=== PATIENT | female | born 1960 | race Caucasian/White ===

== ENCOUNTER 2019-04-01 11:56 | Emergency (ER) | payer OTHER ==
[~2019-04-01] VITALS: Ht 142.2 cm; Wt 62.0 kg
[2019-04-01] MEDS ORDERED: VISCOUS LIDOCAINE 2% 15 ML UDC MM ONE (12:45)
[2019-04-01 14:01] VITALS: BP 142/77
== END 2019-04-01 14:02 | disposition home or self-care (01) ==
LOC: ER 12:21
DX: R07.89 Other chest pain (principal); J02.9 Acute pharyngitis, unspecified; R06.02 Shortness of breath
CPT/HCPCS: 71045; 99283

== ENCOUNTER 2021-06-09 06:43 | Inpatient (IN) | payer OTHER ==
[~2021-06-09] VITALS: Ht 162.6 cm; Wt 68.0 kg
[2021-06-09] VITALS (48 sets, daily range): BP systolic 0–154; BP diastolic 0–107
[2021-06-09] MEDS ORDERED: PROPOFOL 10MG/ML 100ML 100 ML IV ONE (07:15)
[2021-06-09] MEDS ORDERED: SUCCINYLCHOLINE CHLORIDE 200MG/10ML IV ONE ×2 (07:15→08:07)
[2021-06-09] MEDS ORDERED: ETOMIDATE 2MG/ML 10ML VIAL IV ONE ×2 (07:15→08:07)
[2021-06-09] MEDS ORDERED: DEXAMETHASONE 10 MG/ML VIAL IV ONE (07:45)
[2021-06-09] MEDS ORDERED: MANNITOL 20% (20GM/100ML) BAG 500ML PREMIX IV ONE (07:45)
[2021-06-09] MEDS ORDERED: MANNITOL 20% 500 ML IV SCH (08:00)
[2021-06-09] MEDS ORDERED: VECURONIUM BROMIDE 10 MG/VIAL IV ONE (08:07)
[2021-06-09] MEDS ORDERED: LEVETIRACETAM 1000MG PREMIX 100 ML IV ONE (08:45)
[2021-06-09 08:50] LABS: BG BASE EXCESS -7.3 mmol/L (-2.0-2.0); BG CARBOXYHEMOGLOBIN 0.3 % (0.5-1.5); BG DEOXYHEMOGLOBIN 3.1 % (0.0-5.0); BG FRACTION INSPIRED OXYGEN 40; BG HCO3 ACT 14.6 mmol/L (22.0-26.0); BG METHEMOGLOBIN 0.1 % (0.0-1.5); BG OXYGEN SATURATION 96.9 % (92.0-98.5); BG OXYHEMOGLOBIN 96.5 % (94.0-97.0); BG PCO2 21.1 mmHg (35.0-45.0); BG PH 7.457 (7.350-7.450); BG SAMPLE SITE RIGHT RADIAL; BG TOTAL HEMOGLOBIN 12.3 g/dL (12.0-18.0); BG VENT MODE VENT - AC
[2021-06-09] MEDS ORDERED: IOHEXOL-350 100 ML BOTTLE ONE ×2 (08:53→12:13)
[2021-06-09 09:11] LABS: HEMATOCRIT. 32.8 % (36.0-48.0); HEMOGLOBIN. 10.9 g/dL (12.0-16.0); MEAN CORPUSCULAR HEMOGLOBIN 30.4 pg (28.0-32.0); MEAN CORPUSCULAR VOLUME 91.1 fL (81.0-99.0); MEAN PLATELET VOLUME 8.1 fl (7.4-10.4); PLATELET 341 x1000/uL (130-400); RED CELL DISTRIBUTION WIDTH 12.7 % (11.6-14.6)
[2021-06-09 09:16] LABS: CHLORIDE 107 mEq/L (98-107)
[2021-06-09 09:19] LABS: ETHANOL BLOOD < 10 mg/dL
[2021-06-09 09:22] LABS: LDL CHOLESTEROL 101 mg/dL (5-100)
[2021-06-09] MEDS ORDERED: THROMBIN (BOVINE) 5000 UNITS/VIAL TOP ONE (09:52)
[2021-06-09] MEDS ORDERED: LIDOCAINE HCL/EPINEPHRINE 1%-EPI 1:100,000 20 ML VIAL ONE ×2 (09:52→12:45)
[2021-06-09] MEDS ORDERED: GENTAMICIN SULF 40MG/ML 2ML VIAL ONE (09:53)
[2021-06-09] MEDS ORDERED: BACITRACIN 15GM TUBE TOP ONE ×2 (09:53→10:29)
[2021-06-09 10:06] LABS: CLARITY URINE CLEAR (CLEAR); COLOR URINE YELLOW (YELLOW); KETONES URINE 1+ (NEGATIVE); LEUKOCYTE ESTERASE URINE NEGATIVE (NEGATIVE); NITRITE URINE NEGATIVE (NEGATIVE); OCCULT BLOOD URINE NEGATIVE (NEGATIVE); PROTEIN URINE 1+ (NEGATIVE); SPECIFIC GRAVITY URINE 1.038 (1.005-1.030); UROBILINOGEN URINE 0.2 E.U./dL (0.2-1.0)
[2021-06-09 10:08] LABS: PLATELET ESTIMATE NORMAL
[2021-06-09 10:15] LABS: *AMPHETAMINES SCREEN URINE NEGATIVE (NEGATIVE); *BARBITURATES SCREEN URINE NEGATIVE (NEGATIVE); *BENZODIAZEPINES SCREEN URINE NEGATIVE (NEGATIVE); *COCAINE SCREEN URINE NEGATIVE (NEGATIVE); METHADONE URINE SCREEN NEGATIVE (NEGATIVE); OPIATES URINE SCREEN NEGATIVE (NEGATIVE); PHENCYCLIDINE URINE SCREEN NEGATIVE (NEGATIVE)
[2021-06-09] MEDS ORDERED: NICARDIPINE 100 MG in SODIUM CHLORIDE 0.9% 100 ML IV PRN (10:15)
[2021-06-09 10:16] LABS: CANNABINOID URINE SCREEN NEGATIVE (NEGATIVE)
[2021-06-09] MEDS ORDERED: NITROPRUSSIDE 100 MG in DEXT 5% WATER 250 ML IV PRN (10:30)
[2021-06-09] MEDS ORDERED: PROPOFOL 200MG/20ML VIAL IV ONE (10:41)
[2021-06-09] MEDS ORDERED: POTASSIUM CHLORIDE INJ 40 MEQ in DEXT 5% WATER 250 ML IV NR ×2 (11:00→16:30)
[2021-06-09] MEDS ORDERED: PHENYLEPHRINE HCL 10 MG/ML 1ML (IV VIAL) IV ONE (11:07)
[2021-06-09] MEDS ORDERED: GLYCOPYRROLATE 0.2 MG/ML 2ML VIAL ONE (11:09)
[2021-06-09] MEDS ORDERED: ROCURONIUM BROMIDE 10MG/ML VIAL 5ML IV ONE (11:32)
[2021-06-09] MEDS ORDERED: MANNITOL 20% 500 ML IV ONE (11:58)
[2021-06-09] MEDS ORDERED: NICARDIPINE 100 MG in SODIUM CHLORIDE 0.9% 60 ML IV PRN (13:15)
[2021-06-09] MEDS ORDERED: MORPHINE SULFATE 4 MG/ML CPJ (NOT FOR IM USE) IV PRN (13:15)
[2021-06-09] MEDS ORDERED: CEFAZOLIN SODIUM 1000MG/VIAL IV SCH (14:00)
[2021-06-09] MEDS: DEXT 5%/LACTATED RINGERS 1,000 ML IV SCH (14:34)
[2021-06-09] MEDS: DOPAMINE 400MG/250ML PREMIX 250 ML IV PRN (15:21)
[2021-06-09] MEDS: CEFAZOLIN 1000MG PREMIX 50 ML IV SCH ×2 (15:22→22:00)
[2021-06-09] MEDS: PANTOPRAZOLE SODIUM 40 MG/VIAL IV SCH (16:24)
[2021-06-09 16:44] LABS: BG BASE EXCESS -5.9 mmol/L (-2.0-2.0); BG CARBOXYHEMOGLOBIN 0.3 % (0.5-1.5); BG DEOXYHEMOGLOBIN 0.5 % (0.0-5.0); BG FRACTION INSPIRED OXYGEN 100; BG HCO3 ACT 16.4 mmol/L (22.0-26.0); BG METHEMOGLOBIN 0.4 % (0.0-1.5); BG OXYGEN SATURATION 99.5 % (92.0-98.5); BG OXYHEMOGLOBIN 98.8 % (94.0-97.0); BG PCO2 24.5 mmHg (35.0-45.0); BG PH 7.444 (7.350-7.450); BG PO2 384.7 mmHg (75.0-100.0); BG SAMPLE SITE ALINE; BG TOTAL RESPIRATORY RATE 16 b/min; BG VENT MODE VENT - AC
[2021-06-09] MEDS ORDERED: SODIUM CHLORIDE 0.9% 500 ML IV NR (17:00)
[2021-06-09] MEDS: PIPERACILLIN/TAZOBACTAM 3.375 G in DEXTROSE 5% WATER 50 ML IV SCH (17:03)
[2021-06-09] MEDS: DEXAMETHASONE 4MG/ML 1ML VIAL IV SCH (17:03)
[2021-06-09] MEDS: LEVETIRACETAM 500MG PREMIX 100 ML IV SCH (21:00)
[2021-06-09 22:47] LABS: CHLORIDE 129 mEq/L (98-107)
[2021-06-09 22:49] LABS: PROTHROMBIN TIME 10.9 sec (9.6-11.0)
[2021-06-09 22:58] LABS: PHOSPHORUS 0.6 mg/dL (2.5-4.9)
[2021-06-10] VITALS (103 sets, daily range): BP systolic 69–191; BP diastolic 38–100
[2021-06-10] MEDS ORDERED: POTASSIUM PHOS,M-BASIC-D-BASIC 30 MMOL in SODIUM CHLORIDE 0.9% 500 ML IV SCH
[2021-06-10] MEDS: DOPAMINE 400MG/250ML PREMIX 250 ML IV PRN (00:05)
[2021-06-10] MEDS: DEXAMETHASONE 4MG/ML 1ML VIAL IV SCH ×4 (00:06→18:03)
[2021-06-10] MEDS ORDERED: SODIUM CHLORIDE 0.9% 1,000 ML IV SCH (02:00)
[2021-06-10] MEDS ORDERED: DEXTROSE 50% WATER 50ML SYRINGE IV PRN (02:00)
[2021-06-10] MEDS: DESMOPRESSIN ACETATE 4MCG/ML AMP IV SCH ×2 (02:35→13:12)
[2021-06-10] MEDS: PIPERACILLIN/TAZOBACTAM 3.375 G in DEXTROSE 5% WATER 50 ML IV SCH ×3 (02:36→18:03)
[2021-06-10] MEDS: INSULIN LISPRO 100 UNITS/ML SUBCUT SCH ×4 (03:02→18:04)
[2021-06-10] MEDS: BLOOD SUGAR DIAGNOSTIC STRIP TEST SCH ×4 (03:02→17:08)
[2021-06-10 05:40] LABS: HEMOGLOBIN. 10.7 g/dL (12.0-16.0); MEAN CORPUSCULAR HEMOGLOBIN 30.7 pg (28.0-32.0); MEAN CORPUSCULAR VOLUME 92.1 fL (81.0-99.0); MEAN PLATELET VOLUME 7.9 fl (7.4-10.4); PLATELET 307 x1000/uL (130-400); RED BLOOD CELL COUNT 3.47 mill/uL (4.2-5.4); RED CELL DISTRIBUTION WIDTH 13.3 % (11.6-14.6)
[2021-06-10 05:44] LABS: CHLORIDE 147 mEq/L (98-107)
[2021-06-10] MEDS: CEFAZOLIN 1000MG PREMIX 50 ML IV SCH ×2 (06:44→13:12)
[2021-06-10 07:45] LABS: BG BASE EXCESS -6.5 mmol/L (-2.0-2.0); BG CARBOXYHEMOGLOBIN 0.2 % (0.5-1.5); BG DEOXYHEMOGLOBIN 1.4 % (0.0-5.0); BG HCO3 ACT 15.9 mmol/L (22.0-26.0); BG METHEMOGLOBIN 0.3 % (0.0-1.5); BG OXYGEN SATURATION 98.6 % (92.0-98.5); BG OXYHEMOGLOBIN 98.1 % (94.0-97.0); BG PCO2 23.4 mmHg (35.0-45.0); BG PH 7.451 (7.350-7.450); BG PO2 160.4 mmHg (75.0-100.0); BG SAMPLE SITE ALINE; BG TOTAL HEMOGLOBIN 10.7 g/dL (12.0-18.0); BG VENT MODE VENT - AC
[2021-06-10] MEDS ORDERED: SODIUM CHLORIDE 0.9% 250 ML IV SCH (07:45)
[2021-06-10] MEDS ORDERED: NOREPINEPHRINE 8 MG in DEXT 5% WATER 242 ML IV PRN (08:00)
[2021-06-10] MEDS: PANTOPRAZOLE SODIUM 40 MG/VIAL IV SCH (09:00)
[2021-06-10] MEDS: LEVETIRACETAM 500MG PREMIX 100 ML IV SCH ×2 (09:01→21:58)
[2021-06-10] MEDS: IPRATROPIUM/ALBUTEROL 0.5-3(2.5)MG/3ML NEB HHN PRN (09:16)
[2021-06-10] MEDS: DEXT 5%/LACTATED RINGERS 1,000 ML IV SCH (11:29)
[2021-06-10] MEDS: DEXT 5%/0.45% NACL 1000ML 1,000 ML IV SCH (12:26)
[2021-06-10] MEDS ORDERED: NALOXONE HCL 0.4MG/ML VIAL IV PRN (13:15)
[2021-06-10 16:02] LABS: PLATELET ESTIMATE NORMAL
[2021-06-11] VITALS (97 sets, daily range): BP systolic 73–137; BP diastolic 39–101
[2021-06-11] MEDS: DEXAMETHASONE 4MG/ML 1ML VIAL IV SCH ×5 (00:04→23:16)
[2021-06-11] MEDS: INSULIN LISPRO 100 UNITS/ML SUBCUT SCH ×5 (00:04→23:16)
[2021-06-11] MEDS: BLOOD SUGAR DIAGNOSTIC STRIP TEST SCH ×5 (00:05→23:16)
[2021-06-11] MEDS: DESMOPRESSIN ACETATE 4MCG/ML AMP IV SCH ×3 (02:00→22:40)
[2021-06-11] MEDS: PIPERACILLIN/TAZOBACTAM 3.375 G in DEXTROSE 5% WATER 50 ML IV SCH ×3 (02:15→18:54)
[2021-06-11] MEDS: DEXT 5%/0.45% NACL 1000ML 1,000 ML IV SCH (02:20)
[2021-06-11] MEDS: PANTOPRAZOLE SODIUM 40 MG/VIAL IV SCH (09:11)
[2021-06-11] MEDS: LEVETIRACETAM 500MG PREMIX 100 ML IV SCH ×2 (09:12→22:14)
[2021-06-11 09:43] LABS: HEMOGLOBIN. 9.1 g/dL (12.0-16.0); MEAN CORPUSCULAR HEMOGLOBIN 30.1 pg (28.0-32.0); MEAN CORPUSCULAR VOLUME 92.7 fL (81.0-99.0); MEAN PLATELET VOLUME 8.4 fl (7.4-10.4); PLATELET 195 x1000/uL (130-400); RED BLOOD CELL COUNT 3.01 mill/uL (4.2-5.4); RED CELL DISTRIBUTION WIDTH 13.8 % (11.6-14.6)
[2021-06-11 09:54] LABS: BG BASE EXCESS -6.2 mmol/L (-2.0-2.0); BG CARBOXYHEMOGLOBIN 0.3 % (0.5-1.5); BG DEOXYHEMOGLOBIN 4.7 % (0.0-5.0); BG FRACTION INSPIRED OXYGEN 35; BG METHEMOGLOBIN 0.3 % (0.0-1.5); BG OXYGEN SATURATION 95.3 % (92.0-98.5); BG OXYHEMOGLOBIN 94.7 % (94.0-97.0); BG PCO2 26.4 mmHg (35.0-45.0); BG PH 7.427 (7.350-7.450); BG PO2 80.5 mmHg (75.0-100.0); BG SAMPLE SITE ALINE; BG VENT MODE VENT - AC
[2021-06-11 10:15] LABS: CHLORIDE 138 mEq/L (98-107)
[2021-06-11 11:51] LABS: BG BASE EXCESS -6.3 mmol/L (-2.0-2.0); BG CARBOXYHEMOGLOBIN 0.1 % (0.5-1.5); BG DEOXYHEMOGLOBIN 1.2 % (0.0-5.0); BG FRACTION INSPIRED OXYGEN 100; BG HCO3 ACT 18.3 mmol/L (22.0-26.0); BG METHEMOGLOBIN 0.2 % (0.0-1.5); BG OXYGEN SATURATION 98.8 % (92.0-98.5); BG OXYHEMOGLOBIN 98.5 % (94.0-97.0); BG PH 7.362 (7.350-7.450); BG PO2 363.6 mmHg (75.0-100.0); BG SAMPLE SITE ALINE; BG TOTAL HEMOGLOBIN 10.4 g/dL (12.0-18.0); BG VENT MODE VENT - AC
[2021-06-11 11:52] LABS: PLATELET ESTIMATE NORMAL
[2021-06-11 12:10] LABS: PHOSPHORUS 1.7 mg/dL (2.5-4.9)
[2021-06-11] MEDS ORDERED: POTASSIUM CHLORIDE INJ 60 MEQ in DEXT 5% WATER 500 ML IV NR (12:30)
[2021-06-11 12:32] LABS: BG BASE EXCESS -8.5 mmol/L (-2.0-2.0); BG CARBOXYHEMOGLOBIN 0.2 % (0.5-1.5); BG FRACTION INSPIRED OXYGEN 44; BG METHEMOGLOBIN 0.3 % (0.0-1.5); BG OXYHEMOGLOBIN 98.5 % (94.0-97.0); BG PH 7.216 (7.350-7.450); BG PO2 329.6 mmHg (75.0-100.0); BG SAMPLE SITE ALINE; BG TOTAL HEMOGLOBIN 10.3 g/dL (12.0-18.0); BG VENT MODE NASAL CANNULA
[2021-06-11] MEDS: DEXTROSE 5% WATER 1,000 ML IV SCH (14:51)
[2021-06-11] MEDS: IPRATROPIUM/ALBUTEROL 0.5-3(2.5)MG/3ML NEB HHN PRN (21:04)
[2021-06-11] MEDS ORDERED: ACETAMINOPHEN 650MG/20.3ML UDC NG PRN (22:45)
[2021-06-12] VITALS (58 sets, daily range): BP systolic 80–166; BP diastolic 43–101
[2021-06-12] MEDS: IPRATROPIUM/ALBUTEROL 0.5-3(2.5)MG/3ML NEB HHN PRN ×5 (01:26→20:20)
[2021-06-12] MEDS: PIPERACILLIN/TAZOBACTAM 3.375 G in DEXTROSE 5% WATER 50 ML IV SCH ×3 (02:00→18:02)
[2021-06-12] MEDS: DEXTROSE 5% WATER 1,000 ML IV SCH ×2 (04:05→16:12)
[2021-06-12 05:25] LABS: HEMATOCRIT. 25.8 % (36.0-48.0); HEMOGLOBIN. 8.6 g/dL (12.0-16.0); MEAN CORPUSCULAR HEMOGLOBIN 30.7 pg (28.0-32.0); MEAN CORPUSCULAR VOLUME 92.1 fL (81.0-99.0); MEAN PLATELET VOLUME 8.4 fl (7.4-10.4); PLATELET 184 x1000/uL (130-400); RED CELL DISTRIBUTION WIDTH 14.4 % (11.6-14.6)
[2021-06-12] MEDS: DEXAMETHASONE 4MG/ML 1ML VIAL IV SCH ×4 (05:27→23:44)
[2021-06-12] MEDS: BLOOD SUGAR DIAGNOSTIC STRIP TEST SCH ×4 (05:27→23:40)
[2021-06-12] MEDS: INSULIN LISPRO 100 UNITS/ML SUBCUT SCH ×4 (05:27→23:44)
[2021-06-12 05:32] LABS: CHLORIDE 126 mEq/L (98-107)
[2021-06-12] MEDS: DESMOPRESSIN ACETATE 4MCG/ML AMP IV SCH ×2 (08:36→20:06)
[2021-06-12] MEDS: LEVETIRACETAM 500MG PREMIX 100 ML IV SCH ×2 (08:36→20:03)
[2021-06-12] MEDS: PANTOPRAZOLE SODIUM 40 MG/VIAL IV SCH (08:36)
[2021-06-12 09:00] LABS: BG BASE EXCESS -5.5 mmol/L (-2.0-2.0); BG CARBOXYHEMOGLOBIN 0.3 % (0.5-1.5); BG DEOXYHEMOGLOBIN 0.9 % (0.0-5.0); BG FRACTION INSPIRED OXYGEN 100; BG HCO3 ACT 20.8 mmol/L (22.0-26.0); BG METHEMOGLOBIN 0.3 % (0.0-1.5); BG OXYGEN SATURATION 99.1 % (92.0-98.5); BG OXYHEMOGLOBIN 98.5 % (94.0-97.0); BG PCO2 43.9 mmHg (35.0-45.0); BG PH 7.293 (7.350-7.450); BG PO2 220.9 mmHg (75.0-100.0); BG SAMPLE SITE ALINE; BG TOTAL HEMOGLOBIN 9.5 g/dL (12.0-18.0); BG VENT MODE VENT - AC
[2021-06-12 09:32] LABS: BG BASE EXCESS -5.9 mmol/L (-2.0-2.0); BG CARBOXYHEMOGLOBIN 0.2 % (0.5-1.5); BG DEOXYHEMOGLOBIN 0.7 % (0.0-5.0); BG FRACTION INSPIRED OXYGEN 44; BG HCO3 ACT 21.1 mmol/L (22.0-26.0); BG METHEMOGLOBIN 0.2 % (0.0-1.5); BG OXYGEN SATURATION 99.3 % (92.0-98.5); BG OXYHEMOGLOBIN 98.9 % (94.0-97.0); BG PCO2 48.5 mmHg (35.0-45.0); BG PH 7.256 (7.350-7.450); BG SAMPLE SITE ALINE; BG TOTAL HEMOGLOBIN 10.1 g/dL (12.0-18.0); BG VENT MODE ETT APNEA TEST
[2021-06-12 13:52] LABS: PLATELET ESTIMATE NORMAL
== END 2021-06-13 00:02 | DRG 20 ==
LOC: ER 06:43 → EDBEDREQTM 07:33 → EDBEDREQSVC 07:33 → EDBEDREQ 07:33 → MICUNO 10:06 → EDBEDREQ 10:08 → EDBEDREQTM 10:08 → ENRESERV 10:35
PROVIDERS: ADMIT Internal Medicine; ATTEND Internal Medicine
PROC: 00H632Z Insertion of Monitoring Device into Cerebral Ventricle, Percutaneous Approach (ICD-10-PCS; principal; 2021-06-09)
PROC: 03VG0CZ Restriction of Intracranial Artery with Extraluminal Device, Open Approach (ICD-10-PCS; 2021-06-09)
PROC: 009630Z Drainage of Cerebral Ventricle with Drainage Device, Percutaneous Approach (ICD-10-PCS; 2021-06-09)
PROC: 5A1945Z Respiratory Ventilation, 24-96 Consecutive Hours (ICD-10-PCS; 2021-06-09)
PROC: 00U207Z Supplement Dura Mater with Autologous Tissue Substitute, Open Approach (ICD-10-PCS; 2021-06-09)
PROC: 0NQ00ZZ Repair Skull, Open Approach (ICD-10-PCS; 2021-06-09)
PROC: 0BH17EZ Insertion of Endotracheal Airway into Trachea, Via Natural or Artificial Opening (ICD-10-PCS; 2021-06-09)
PROC: 00C70ZZ Extirpation of Matter from Cerebral Hemisphere, Open Approach (ICD-10-PCS; 2021-06-10)
PROC: 4A103BD Monitoring of Intracranial Pressure, Percutaneous Approach (ICD-10-PCS; 2021-06-10)
PROC: 06HY33Z Insertion of Infusion Device into Lower Vein, Percutaneous Approach (ICD-10-PCS; 2021-06-12)
DX: I61.5 Nontraumatic intracerebral hemorrhage, intraventricular (principal); G93.41 Metabolic encephalopathy; J96.00 Acute respiratory failure, unspecified whether with hypoxia or hypercapnia; G93.6 Cerebral edema; E87.0 Hyperosmolality and hypernatremia; G91.9 Hydrocephalus, unspecified; E87.2 Acidosis; E87.6 Hypokalemia; D64.9 Anemia, unspecified; I60.9 Nontraumatic subarachnoid hemorrhage, unspecified; G43.909 Migraine, unspecified, not intractable, without status migrainosus; I67.1 Cerebral aneurysm, nonruptured; R40.20 Unspecified coma; R40.2430 Glasgow coma scale score 3-8, unspecified time; R00.1 Bradycardia, unspecified; I62.00 Nontraumatic subdural hemorrhage, unspecified; Z20.822 Contact with and (suspected) exposure to COVID-19
CPT/HCPCS: 31500; 36415; 36600; 70496; 71045; 78610; 80048; 80053; 80076; 80305; 80320; 81003; 82375; 82805; 82962; 83036; 83721; 83735; 83930; 83935; 84100; 84484; 85025; 86850; 86900; 86920; 87070; 87426; 88304; 93005; 93970; 94002; 94003; 94640; 99291; A9512; C1713; C1725; C9113; J0330; J0690; J1100; J1265; J1580; J1815; J1953; J2370; J2543; J2597; J2704; J3480; J3490; J7040; J7050; J7060; J7070; J7121; Q9967; G0480

== ENCOUNTER 2021-06-13 00:15 | Inpatient (IN) | payer OTHER ==
[~2021-06-13] VITALS: Ht 162.6 cm; Wt 67.6 kg
[2021-06-13] VITALS (79 sets, daily range): BP systolic 0–240; BP diastolic 0–183
[2021-06-13] MEDS ORDERED: VASOPRESSIN 40 UNIT in SODIUM CHLORIDE 0.9% 98 ML IV PRN (01:06)
[2021-06-13] MEDS ORDERED: SODIUM CHLORIDE 0.9% 1,000 ML IV SCH (01:30)
[2021-06-13 01:54] LABS: HEMATOCRIT. 26.4 % (36.0-48.0); HEMOGLOBIN. 8.7 g/dL (12.0-16.0); MEAN CORPUSCULAR HEMOGLOBIN 30.3 pg (28.0-32.0); MEAN CORPUSCULAR VOLUME 92.6 fL (81.0-99.0); MEAN PLATELET VOLUME 8.8 fl (7.4-10.4); PLATELET 170 x1000/uL (130-400); RED BLOOD CELL COUNT 2.85 mill/uL (4.2-5.4); RED CELL DISTRIBUTION WIDTH 14.4 % (11.6-14.6)
[2021-06-13 02:01] LABS: CHLORIDE 123 mEq/L (98-107); CLARITY URINE CLOUDY (CLEAR); COLOR URINE YELLOW (YELLOW); KETONES URINE NEGATIVE (NEGATIVE); LEUKOCYTE ESTERASE URINE NEGATIVE (NEGATIVE); NITRITE URINE NEGATIVE (NEGATIVE); OCCULT BLOOD URINE 2+ (NEGATIVE); PH URINE 5.5 (4.5-8.0); PROTEIN URINE 2+ (NEGATIVE); SPECIFIC GRAVITY URINE 1.046 (1.005-1.030); UROBILINOGEN URINE 0.2 E.U./dL (0.2-1.0)
[2021-06-13 02:05] LABS: AMYLASE 408 IU/L (25-115); PARTIAL THROMBOPLASTIN TIME 27.1 sec (23.4-31.0); PROTHROMBIN TIME 11.2 sec (9.6-11.0)
[2021-06-13 02:07] LABS: PHOSPHORUS 2.5 mg/dL (2.5-4.9)
[2021-06-13 02:09] LABS: CREATINE KINASE 265 IU/L (26-192)
[2021-06-13 02:26] LABS: BG BASE EXCESS -3.5 mmol/L (-2.0-2.0); BG CARBOXYHEMOGLOBIN 0.2 % (0.5-1.5); BG DEOXYHEMOGLOBIN 0.9 % (0.0-5.0); BG FRACTION INSPIRED OXYGEN 100; BG HCO3 ACT 22.4 mmol/L (22.0-26.0); BG METHEMOGLOBIN 0.4 % (0.0-1.5); BG OXYGEN SATURATION 99.1 % (92.0-98.5); BG OXYHEMOGLOBIN 98.5 % (94.0-97.0); BG PCO2 44.4 mmHg (35.0-45.0); BG PH 7.321 (7.350-7.450); BG PO2 276.7 mmHg (75.0-100.0); BG SAMPLE SITE ALINE; BG TOTAL HEMOGLOBIN 9.4 g/dL (12.0-18.0); BG VENT MODE VENT - AC
[2021-06-13] MEDS ORDERED: HETASTARCH/NORMAL SALINE 500 ML PLAST..BAG IV ONE ×2 (03:00→03:30)
[2021-06-13] MEDS ORDERED: PIPERACILLIN/TAZOBACTAM 3.375GM/50ML PREMIX IV ONE (03:00)
[2021-06-13] MEDS ORDERED: MAGNESIUM 4 G PREMIX 100 ML IV NR (04:00)
[2021-06-13] MEDS ORDERED: THIAMINE HCL 500 MG in SODIUM CHLORIDE 0.9% 49 ML IV NR (04:00)
[2021-06-13] MEDS ORDERED: VANCOMYCIN 1,250 MG in SODIUM CHLORIDE 0.9% 250 ML IV NR (04:00)
[2021-06-13] MEDS ORDERED: DOBUTAMINE 250MG PREMIX 250 ML IV PRN (04:00)
[2021-06-13] MEDS ORDERED: KCL 20MEQ/100ML PREMIX 100 ML IV NR ×2 (04:00→08:00)
[2021-06-13] MEDS ORDERED: ALBUMIN HUMAN 25GM/500ML (5%) IV NR ×2 (04:00→05:00)
[2021-06-13 04:55] LABS: PLATELET ESTIMATE NORMAL
[2021-06-13] MEDS ORDERED: METHYLPREDNISOLONE SOD SUCC 2,000 MG in DEXT 5% WATER 100 ML IV NR (05:00)
[2021-06-13] MEDS ORDERED: PIPERACILLIN/TAZOBACTAM 3.375 G in DEXTROSE 5% WATER 50 ML IV NR (05:00)
[2021-06-13 05:01] LABS: BG BASE EXCESS -2.6 mmol/L (-2.0-2.0); BG CARBOXYHEMOGLOBIN 0.2 % (0.5-1.5); BG DEOXYHEMOGLOBIN 1.3 % (0.0-5.0); BG FRACTION INSPIRED OXYGEN 50; BG HCO3 ACT 21.4 mmol/L (22.0-26.0); BG METHEMOGLOBIN 0.3 % (0.0-1.5); BG OXYGEN SATURATION 98.7 % (92.0-98.5); BG OXYHEMOGLOBIN 98.2 % (94.0-97.0); BG PCO2 33.6 mmHg (35.0-45.0); BG PH 7.422 (7.350-7.450); BG PO2 176.7 mmHg (75.0-100.0); BG SAMPLE SITE ALINE; BG TOTAL HEMOGLOBIN 8.1 g/dL (12.0-18.0); BG VENT MODE APRV
[2021-06-13] MEDS: INSULIN REGULAR (DRIP) 100 UNITS in SODIUM CHLORIDE 0.9% 99 ML IV SCH ×2 (05:04→11:49)
[2021-06-13] MEDS ORDERED: FUROSEMIDE 40MG/4ML VIAL IVP NR (05:30)
[2021-06-13 06:25] LABS: HEMOGLOBIN. 7.3 g/dL (12.0-16.0); MEAN CORPUSCULAR HEMOGLOBIN 30.6 pg (28.0-32.0); MEAN CORPUSCULAR VOLUME 91.6 fL (81.0-99.0); MEAN PLATELET VOLUME 8.6 fl (7.4-10.4); PLATELET 132 x1000/uL (130-400); RED CELL DISTRIBUTION WIDTH 14.2 % (11.6-14.6)
[2021-06-13 06:33] LABS: CHLORIDE 123 mEq/L (98-107)
[2021-06-13 06:35] LABS: INR 1.1; PROTHROMBIN TIME 11.5 sec (9.6-11.0)
[2021-06-13 06:36] LABS: GAMMA GLUTAMYL TRANSPEPTIDASE 105 IU/L (7-32)
[2021-06-13 06:38] LABS: PHOSPHORUS 1.6 mg/dL (2.5-4.9)
[2021-06-13 06:39] LABS: AMYLASE 279 IU/L (25-115)
[2021-06-13 06:42] LABS: CREATINE KINASE 220 IU/L (26-192); CREATINE KINASE MB FRACTION 5.9 ng/mL (0.5-3.6)
[2021-06-13] MEDS ORDERED: ALBUMIN HUMAN 25GM/100ML (25%) IV ONE (07:30)
[2021-06-13 07:32] LABS: NUCLEATED RED BLOOD CELLS 1 /100 WBC; PLATELET ESTIMATE NORMAL
[2021-06-13 08:08] LABS: CLARITY URINE CLEAR (CLEAR); COLOR URINE YELLOW (YELLOW); KETONES URINE NEGATIVE (NEGATIVE); LEUKOCYTE ESTERASE URINE NEGATIVE (NEGATIVE); NITRITE URINE NEGATIVE (NEGATIVE); OCCULT BLOOD URINE 1+ (NEGATIVE); PH URINE 6.5 (4.5-8.0); PROTEIN URINE NEGATIVE (NEGATIVE); SPECIFIC GRAVITY URINE 1.008 (1.005-1.030); UROBILINOGEN URINE 0.2 E.U./dL (0.2-1.0)
[2021-06-13] MEDS: FUROSEMIDE 40MG/4ML VIAL IVP SCH ×3 (09:34→16:23)
[2021-06-13] MEDS ORDERED: POTASSIUM PHOS,M-BASIC-D-BASIC 20 MMOL in DEXT 5% WATER 243.3333 ML IV SCH (11:00)
[2021-06-13] MEDS ORDERED: METHYLPREDNISOLONE SOD SUCC 500 MG in SODIUM CHLORIDE 0.9% 50 ML IV SCH (12:00)
[2021-06-13] MEDS ORDERED: THIAMINE HCL 100 MG in SODIUM CHLORIDE 0.9% 49 ML IV SCH (12:00)
[2021-06-13 12:57] LABS: MEAN CORPUSCULAR HEMOGLOBIN 29.9 pg (28.0-32.0); MEAN CORPUSCULAR VOLUME 91.7 fL (81.0-99.0); MEAN PLATELET VOLUME 9.2 fl (7.4-10.4); PLATELET 148 x1000/uL (130-400); RED BLOOD CELL COUNT 2.35 mill/uL (4.2-5.4); RED CELL DISTRIBUTION WIDTH 14.3 % (11.6-14.6)
[2021-06-13] MEDS ORDERED: PIPERACILLIN/TAZOBACTAM 3.375GM/50ML PREMIX IV SCH (13:00)
[2021-06-13 13:03] LABS: CHLORIDE 117 mEq/L (98-107)
[2021-06-13 13:05] LABS: HEMATOCRIT. 21.5 % (36.0-48.0)
[2021-06-13 13:06] LABS: PARTIAL THROMBOPLASTIN TIME 25.4 sec (23.4-31.0); PROTHROMBIN TIME 11.1 sec (9.6-11.0)
[2021-06-13 13:10] LABS: PHOSPHORUS 1.4 mg/dL (2.5-4.9)
[2021-06-13 13:12] LABS: CREATINE KINASE 213 IU/L (26-192); CREATINE KINASE MB FRACTION 3.2 ng/mL (0.5-3.6)
[2021-06-13 13:19] LABS: AMYLASE 242 IU/L (25-115)
[2021-06-13 13:40] LABS: BG BASE EXCESS 0.2 mmol/L (-2.0-2.0); BG CARBOXYHEMOGLOBIN 0.8 % (0.5-1.5); BG DEOXYHEMOGLOBIN 0.5 % (0.0-5.0); BG FRACTION INSPIRED OXYGEN 50; BG HCO3 ACT 23.1 mmol/L (22.0-26.0); BG METHEMOGLOBIN 0.1 % (0.0-1.5); BG OXYGEN SATURATION 99.5 % (92.0-98.5); BG OXYHEMOGLOBIN 98.6 % (94.0-97.0); BG PCO2 28.9 mmHg (35.0-45.0); BG PO2 158.5 mmHg (75.0-100.0); BG SAMPLE SITE ALINE; BG VENT MODE VENT - APRV
[2021-06-13 14:00] LABS: PLATELET ESTIMATE NORMAL
[2021-06-13] MEDS ORDERED: PIPERACILLIN/TAZOBACTAM 3.375 G in DEXTROSE 5% WATER 50 ML IV SCH (14:00)
[2021-06-13 14:17] LABS: CLARITY URINE CLEAR (CLEAR); COLOR URINE YELLOW (YELLOW); KETONES URINE NEGATIVE (NEGATIVE); LEUKOCYTE ESTERASE URINE NEGATIVE (NEGATIVE); NITRITE URINE NEGATIVE (NEGATIVE); OCCULT BLOOD URINE 3+ (NEGATIVE); PROTEIN URINE TRACE (NEGATIVE); UROBILINOGEN URINE 0.2 E.U./dL (0.2-1.0)
== END 2021-06-13 18:32 | DRG 44 ==
LOC: MICUNO 00:15
PROVIDERS: ADMIT Internal Medicine
PROC: 0BH17EZ Insertion of Endotracheal Airway into Trachea, Via Natural or Artificial Opening (ICD-10-PCS; principal; 2021-06-13)
PROC: 5A1935Z Respiratory Ventilation, Less than 24 Consecutive Hours (ICD-10-PCS; 2021-06-13)
DX: I61.5 Nontraumatic intracerebral hemorrhage, intraventricular (principal)
CPT/HCPCS: 36415; 36600; 71045; 76700; 80053; 81003; 82150; 82248; 82375; 82550; 82553; 82805; 82962; 82977; 83605; 83615; 83735; 84100; 85025; 86850; 86900; 86920; 87070; 93005; 94003; J1250; J1815; J1940; J2543; J2930; J3370; J3411; J3475; J3480; J3490; J7030; J7040; J7050; J7060; P9016; P9041; P9047